=== PATIENT | male | born 1955 | race African-American/Black ===

== ENCOUNTER 2016-06-23 12:25 | Emergency (ER) | payer MEDICARE, MEDICAID ==
[~2016-06-23] VITALS: Ht 167.6 cm; Wt 102.0 kg
[2016-06-23] MEDS ORDERED: ONDANSETRON HCL 4MG/2ML VIAL IV STA (13:05)
[2016-06-23] MEDS ORDERED: MORPHINE SULFATE 4 MG/ML CPJ (NOT FOR IM USE) IV STA (13:05)
[2016-06-23] MEDS ORDERED: SODIUM CHLORIDE 0.9% 1,000 ML IV ONE (13:07)
[2016-06-23 14:29] LABS: BASOPHILS % 0.7 % (0.0-2.0); DIFFERENTIAL COMMENT 0; EOSINOPHILS % 0.2 % (0.0-5.0); HEMATOCRIT. 40.3 % (42.0-52.0); HEMOGLOBIN. 13.7 g/dL (14.0-18.0); LYMPHOCYTES % 9.4 % (20.0-50.0); MEAN CORPUSCULAR HEMOGLOBIN 26.8 pg (28.0-32.0); MEAN CORPUSCULAR VOLUME 78.9 fL (80.0-94.0); MEAN PLATELET VOLUME 8.1 fl (7.4-10.4); MONOCYTES % 13.4 % (2.0-8.0); NEUTROPHILS % 76.3 % (40.0-76.0); PLATELET 198 x1000/uL (130-400); RED BLOOD CELL COUNT 5.11 mill/uL (4.7-6.1); RED CELL DISTRIBUTION WIDTH 12.8 % (11.6-14.6); WHITE BLOOD COUNT 6.9 x1000/uL (4.5-11.0)
[2016-06-23 14:35] LABS: CHLORIDE 94 mEq/L (98-107); INDEX HEMOLYSI 1 (1-3); INDEX ICTERIC 1 (1-4); INDEX LIPEMIC 1 (1-3)
[2016-06-23 14:36] LABS: PROTHROMBIN TIME 10.9 sec
[2016-06-23 14:43] LABS: ALANINE AMINOTRANSFERASE 28 IU/L (13-61); ALBUMIN 3.5 g/dL (3.4-5.0); CALCIUM 8.3 mg/dL (8.5-10.1); CARBON DIOXIDE 28 mEq/L (21-32); LIPASE 88 IU/L (73-393); UREA NITROGEN BLOOD 13 mg/dL (7-21); eGFR > 60 mL/min (>60)
[2016-06-23 14:56] LABS: ANION GAP 13
[2016-06-23 16:41] VITALS: BP 128/88
[2016-06-25] MEDS ORDERED: ACET-3161 PO (09:47)
[2016-06-25] MEDS ORDERED: DOXA4TAB3 PO (09:47)
[2016-06-25] MEDS ORDERED: FINA5TAB11 PO (09:48)
[2016-06-25] MEDS ORDERED: AMLO10TA80 PO ×2 (09:49→09:58)
[2016-06-25] MEDS ORDERED: HYDR-4135 PO (09:58)
[2016-06-25] MEDS ORDERED: ATOR20TA65 PO (09:58)
== END 2016-06-23 16:43 | disposition home or self-care (01) ==
LOC: ER 14:30
DX: K52.9 Noninfective gastroenteritis and colitis, unspecified (principal); M19.90 Unspecified osteoarthritis, unspecified site; I10 Essential (primary) hypertension; J44.9 Chronic obstructive pulmonary disease, unspecified
CPT/HCPCS: 36415; 74176; 80053; 83690; 85025; 85610; 96361; 96374; 96375; 99285; J2270; J2405; J7030